=== PATIENT | female | born 1940 | race Caucasian/White ===

== ENCOUNTER → 2016-10-09 | Outpatient (CLI) | payer OTHER ==
[~2016-10-09] VITALS: Ht 172.7 cm; Wt 83.9 kg
[~2016-10-09] MED LIST: ALTA5CAP3 PO; ASPI1TAB PO; ATOR1TAB21 PO; CALC500T21 PO; FISHCAP5 PO; HYDR25TAB PO; LIDOCAINE 2% INJ 100 MG/5 ML SDV (FOR ANES.) As Ordered ONE; MULT1TAB18 PO; NS 1,000 ML IV SCH; OSTETAB4 PO; PARO20TA2 PO; PROPOFOL 200 MG/20 ML VIAL As Ordered ONE
--- NOTE | 2016-10-09 09:40 | ROOR ---
Patient Name: Lucila Tim Procedure Date: 10/09/2016 9:20 AM Date of : 1940 Age: 75 Room: [facility] Gender: Female Note Status: Finalized Procedure: Colonoscopy to Cecum Indications: High risk colon cancer surveillance: Personal history of colonic polyps, Last colonoscopy: 2013 Providers: Walt Ho MD Referring MD: Sejal Crabtree NP Requesting Provider: Medicines: Monitored Anesthesia Care Complications: No immediate complications. Procedure: Pre-Anesthesia Assessment: - The heart rate, respiratory rate, oxygen saturations, blood pressure, adequacy of pulmonary ventilation, and response to care were monitored throughout the procedure. The Colonoscope was introduced through the anus and advanced to the cecum, identified by appendiceal orifice and ileocecal valve. The colonoscopy was performed without difficulty. The patient tolerated the procedure well. The quality of the bowel preparation was excellent. Findings: The perianal and digital rectal examinations were normal. Non-bleeding internal hemorrhoids were found during retroflexion. The hemorrhoids were small and Grade I (internal hemorrhoids that do not prolapse). No other significant abnormalities were identified in a careful examination of the remainder of the colon. The exam was otherwise without abnormality on direct and retroflexion views. Impression: - Non-bleeding internal hemorrhoids. - The examination was otherwise normal on direct and retroflexion views. - No specimens collected. - The exam was otherwise normal to the cecum. Recommendation: - Patient has a contact number available for emergencies. The signs and symptoms of potential delayed complications were discussed with the patient. Return to normal activities tomorrow. Written discharge instructions were provided to the patient. - High fiber diet. - Discharge patient to home. - Continue present medications. - Repeat colonoscopy for symptoms only, due to age. - Return to referring physician. - The findings and recommendations were discussed with the patient's family. Walt Ho MD Walt Ho MD 10/09/2016 9:39:42 AM This report has been signed electronically. Number of Addenda: 0 Note Initiated On: 10/09/2016 9:20 AM Estimated Blood Loss: Estimated blood loss: none.
[2016-10-09 10:00] VITALS: BP 147/80
== END ==
LOC: M OPP 08:44
PROVIDERS: ATTEND Internal Medicine Gastroenterology
DX: Z12.11 Encounter for screening for malignant neoplasm of colon (principal); Z86.010 Personal history of colon polyps; Z80.0 Family history of malignant neoplasm of digestive organs; K64.0 First degree hemorrhoids; I10 Essential (primary) hypertension; F41.9 Anxiety disorder, unspecified; K57.30 Diverticulosis of large intestine without perforation or abscess without bleeding; E78.5 Hyperlipidemia, unspecified; M19.90 Unspecified osteoarthritis, unspecified site; G25.0 Essential tremor; Z96.649 Presence of unspecified artificial hip joint; Z79.899 Other long term (current) drug therapy

== ENCOUNTER → 2019-04-16 | Outpatient (REF) | payer OTHER ==
[~2019-04-16] MED LIST changes: +ALTA1CAP3 PO; -ALTA5CAP3 PO; -ASPI1TAB PO; +ASPI81TA26 PO; -LIDOCAINE 2% INJ 100 MG/5 ML SDV (FOR ANES.) As Ordered ONE; -NS 1,000 ML IV SCH; -PARO20TA2 PO; +PARO20TA3 PO; -PROPOFOL 200 MG/20 ML VIAL As Ordered ONE
== END ==
LOC: M LAB REF 16:22
PROVIDERS: ATTEND Nurse Practitioner Adult Health
DX: G25.0 Essential tremor (principal)

== ENCOUNTER → 2020-09-13 | Outpatient (REF) | payer MEDICARE ==
[~2020-09-13] MED LIST changes: +HYDR-3490 PO; -HYDR25TAB PO
== END ==
LOC: M LAB REF 16:24
PROVIDERS: ATTEND Nurse Practitioner Adult Health
DX: G25.0 Essential tremor (principal)

== ENCOUNTER → 2021-05-07 | Outpatient (CLI) | payer MEDICARE ==
--- NOTE | 2021-05-07 12:46 | REPMRS ---
Patient History The patient states she has not had a clinical breast exam in over a year. Patient is postmenopausal. Family history of breast cancer at age 50 in sister, colorectal cancer at age 65 in father. Patient states no breast complaints today. Patient has signed MRS History Sheet. Digital Woman Screen Mammo: May 07, 2021 - Exam #: [id number] Bilateral CC and MLO view(s) were taken. Technologist: Brenda Duran, Technologist Prior study comparison: February 18, 2020, bilateral digital mammo screening bilat, performed at [facility]. January 12, 2019, right breast diagnostic unilateral mammo, performed at [facility]. January 08, 2019, bilateral digital mammo screening bilat, performed at [facility]. FINDINGS: There are scattered fibroglandular densities. Screening. Digital screening (2D) mammography was performed bilaterally in the CC and MLO projections. Additionally, breast tomosynthesis (3D mammography) was performed bilaterally in the CC and MLO projections. Todays exam was compared to the prior exam/exams. By history, the patient has no complaints of a palpable breast abnormality or other significant breast complaints. The breasts are unchanged in size and shape.There is stable post-procedural internal architectural distortion. There are no braulio-soft tissue densities or spiculated masses. There is no new internal architectural distortion.Once again, stable benign appearing calcifications are seen. There are no suspicious braulio-calcific clusters. Skin thickening or nipple retraction is not present. IMPRESSION: BI-RADS Category 2- Benign Findings. There is no evidence of malignant alteration of the breasts. Followup examination recommended in one year. The Volpara volumetric breast density category is B, there are scattered areas of fibroglandular densities. This mammogram was read with the assistance of [facility],an FDA approved computer aided detection system for mammography. The lifetime Tyrer-Cuzick score is 2.5 % Negative x-ray reports should not delay surgical consultation if a dominant or clinically suspicious mass is present. Not all breast cancers can be identified by mammography. Therefore, we recommend that you continue to perform regular breast self-examination and physical examination and then promptly contact your physician of any concerns or changes. Adenosis and dense breasts may obscure an underlying neoplasm. Assessment: BI-RADS/ACR category 2 mammogram. Benign Findings. Recommendation Routine screening mammogram of both breasts in 1 year. Electronically Signed By: Osbaldo Randhawa, 05/07/21 [id number]
== END ==
LOC: M WHC 11:09
PROVIDERS: ATTEND Surgery
DX: Z00.00 Encounter for general adult medical examination without abnormal findings (principal); Z85.3 Personal history of malignant neoplasm of breast

== ENCOUNTER → 2021-10-06 | Outpatient (CLI) | payer MEDICARE | LOC: M LABSMTC 10:45 | PROVIDERS: ATTEND Internal Medicine Cardiovascular Disease | DX: Z20.822 Contact with and (suspected) exposure to COVID-19 (principal) ==

== ENCOUNTER → 2021-11-23 | Outpatient (REF) | payer MEDICARE | LOC: M LAB REF 16:17 | PROVIDERS: ATTEND Nurse Practitioner Adult Health | DX: A69.20 Lyme disease, unspecified (principal) ==

== ENCOUNTER → 2022-02-14 | Outpatient (REF) | payer MEDICARE | LOC: M LAB REF 16:54 | PROVIDERS: ATTEND Nurse Practitioner Adult Health | DX: R41.81 Age-related cognitive decline (principal); R41.3 Other amnesia ==

== ENCOUNTER → 2022-08-09 | Outpatient (CLI) | payer MEDICARE | LOC: M WHC 11:53 | PROVIDERS: ATTEND Nurse Practitioner Adult Health | DX: Z12.31 Encounter for screening mammogram for malignant neoplasm of breast (principal) ==

== ENCOUNTER → 2022-12-27 | Outpatient (REF) | payer MEDICARE | LOC: M LAB REF 16:16 | PROVIDERS: ATTEND Nurse Practitioner Adult Health | DX: M25.50 Pain in unspecified joint (principal) ==

== ENCOUNTER → 2023-08-12 | Outpatient (CLI) | payer MEDICARE | LOC: M WHC 14:22 | PROVIDERS: ATTEND Physician Assistant Medical | DX: Z12.31 Encounter for screening mammogram for malignant neoplasm of breast (principal) ==

== ENCOUNTER → 2023-09-19 | Outpatient (CLI) | payer MEDICARE, OTHER | LOC: M RAD 12:40 | PROVIDERS: ATTEND Physician Assistant Medical | DX: R91.1 Solitary pulmonary nodule (principal) ==

== ENCOUNTER → 2024-03-23 | Outpatient (REF) | payer OTHER ==
[2024-03-23 14:29] LABS: APPEARANCE, URINE HAZY (CLEAR); BACTERIA, URINE AUTO 1+ (NEGATIVE); BILIRUBIN, URINE AUTO NEGATIVE (NEGATIVE); BLOOD, URINE BLOOD NEGATIVE (NEGATIVE); COLOR, URINE YELLOW (YELLOW); GLUCOSE, URINE (UA) AUTO NEGATIVE (NEGATIVE); KETONE, URINE AUTO NEGATIVE (NEGATIVE); LEUKOCYTE ESTERASE, URINE AUTO 3+ (NEGATIVE); MUCUS, URINE SMALL (NEGATIVE); NITRITE, URINE AUTO POSITIVE (NEGATIVE); PROTEIN, URINE AUTO NEGATIVE (NEGATIVE); RBC, URINE AUTO 2 /HPF (0-3); SPECIFIC GRAVITY URINE AUTO 1.012 (1.002-1.035); SQUAMOUS EPITHELIAL CELL UR AU 0 /HPF (0-6); UROBILINOGEN, URINE AUTO 0.2 mg/dL (0.0-2.0); WBC, URINE AUTO 23 /HPF (0-3)
== END ==
LOC: M SMT 12:59
PROVIDERS: ATTEND Specialist
DX: N39.41 Urge incontinence (principal)

== ENCOUNTER → 2024-10-13 | Outpatient (CLI) | payer OTHER | LOC: M WHC 14:56 | PROVIDERS: ATTEND Physician Assistant Medical | DX: Z12.31 Encounter for screening mammogram for malignant neoplasm of breast (principal) ==